=== PATIENT | male | born 1975 ===

== ENCOUNTER 2020-04-28 15:51 | Outpatient (CLI) | payer SELFPAY | END 2020-04-28 15:52 | disposition critical access hospital (66) | LOC: EMS 15:51 | PROVIDERS: ATTEND Surgery | DX: R41.0 Disorientation, unspecified (principal) | CPT/HCPCS: A0425; A0429 ==

== ENCOUNTER 2020-04-28 16:20 | Emergency (ER) | payer SELFPAY ==
--- NOTE | 2020-04-28 16:34 | ED Physician Documentation ---
History of Present Illness - Stated complaint Stated Complaint: POSS C+/BIPOLAR - History obtained from History obtained from: Patient, EMS - History of Present Illness Timing: Today Pain level max: 0 Pain level now: 0 - Additonal information Additional information: Patient is a 45-year-old male who states that he is looking for his lost love today. He states that he is concerned about the coronavirus and wants antibody injections for the coronavirus. He is asymptomatic. No cough. No fever. No chills. He states that he is on medication for bipolar. Unclear if he is taking them or not. Patient is reportedly staying at the [facility] and where he has been "partying" with his friends all weekend. States drinking and using drugs. Review of Systems Ten Systems: 10 systems reviewed and negative Constitutional: denies: Fever, Chills Ears: denies: Ear pain Nose: denies: Rhinorrhea / runny nose, Congestion Throat: denies: Sore throat Cardiac: denies: Chest pain / pressure Respiratory: denies: Dyspnea, Cough GI: denies: Abdominal Pain, Nausea, Vomiting, Diarrhea : denies: Dysuria Skin: denies: Rash Musculoskeletal: denies: Neck pain, Back pain Neurologic: denies: Focal weakness, Numbness, Headache PD PAST MEDICAL HISTORY - Past Medical History Past Medical History: Yes Psych: Bipolar disorder - Past Surgical History Past Surgical History: No - Allergies Allergies/Adverse Reactions: Allergies Allergy/AdvReac Type Severity Reaction Status Date / Time lithium Allergy Rash Verified 04/28/20 16:27 Penicillins Allergy Rash Verified 04/28/20 16:27 - Living Situation Living Arrangement: reports: At home - Social History Does the pt smoke?: Yes Does the pt drink ETOH?: Yes Does the pt have substance abuse?: Yes - Family History Family history: reports: Non contributory PD ED PE NORMAL - Vitals Vital signs reviewed: Yes - General General: Alert and oriented X 3, No acute distress, Well developed/nourished - HEENT HEENT: Moist mucous membranes, Pharynx benign - Neck Neck: Supple, no meningeal sign - Cardiac Cardiac: RRR, Strong equal pulses - Respiratory Respiratory: No respiratory distress, Clear bilaterally - Abdomen Abdomen: Soft, Non tender, Non distended - Derm Derm: Warm and dry - Extremities Extremities: No edema - Neuro Neuro: Alert and oriented X 3 Results - Vitals Vitals: Vital Signs - 24 hr 04/28/20 04/28/20 16:28 16:44 Temperature 37 C 37 C Heart Rate 81 81 Respiratory 16 16 Rate Blood Pressure 162/83 H 162/83 H O2 Saturation 96 96 Oxygen O2 Source Room air PD MEDICAL DECISION MAKING - ED course Complexity details: considered differential, d/w patient ED course: Patient became agitated when he was told there are no antibody injections available for the coronavirus. Patient states then he does not know why he is in the emergency department and that he wants to leave and go home. He walked out into the hallway and stopped in front of 1 of the nurses, Eric, the patient took off his own mask and then tried to remove Eric's mask as well. Police were called. Patient again reiterated that he did not want to be in the emergency department he wanted a ride back to the hotel. The police were comfortable taking him back to the hotel. Patient is alert, oriented. He states he is not homicidal or suicidal. He is not placed on an GERONIMO by police. This document was made in part using voice recognition software. While efforts are made to proofread this document, sound alike and grammatical errors may occur. Departure - Departure Disposition: ED Left Without Being Seen Clinical Impression: Drug abuse, Bipolar 1 disorder Condition: Good Discharge Date/Time: 04/28/20 16:50
[2020-04-28 16:44] VITALS: BP 162/83
== END 2020-04-28 16:50 | disposition left against medical advice (07) ==
LOC: ED 16:20
DX: F19.10 Other psychoactive substance abuse, uncomplicated (principal); F31.9 Bipolar disorder, unspecified
CPT/HCPCS: 99281

== ENCOUNTER 2020-04-29 04:17 | Outpatient (CLI) | payer SELFPAY | END 2020-04-29 04:18 | disposition critical access hospital (66) | LOC: EMS 04:17 | PROVIDERS: ATTEND Surgery | DX: R41.82 Altered mental status, unspecified (principal) | CPT/HCPCS: A0425; A0429 ==

== ENCOUNTER 2020-04-29 04:57 | Emergency (ER) | payer SELFPAY ==
--- NOTE | 2020-04-29 04:58 | ED Physician Documentation ---
History of Present Illness - Stated complaint Stated Complaint: MHE - History obtained from History obtained from: EMS, Police - Additonal information Additional information: The patient is a 45-year-old male brought in by law enforcement and EMS involuntarily. The patient is uncooperative he is in four-point restraints he is refusing to answer any questions he is attempting to spit on healthcare providers. EMS reports the patient was found lying down on the side of the road and being uncooperative they did do an Accu-Chek that was 132 according to first responders. I reviewed the patient's notes he was seen here earlier today and appears to have an a diagnosis of bipolar disorder as well as substance abuse and he is really not taking any of his medications.The patient is refusing to answer any questions. Review of Systems Unable to obtain: Uncooperative PD PAST MEDICAL HISTORY - Present Medications Home Medications: Ambulatory Orders Medication Instructions Recorded Confirmed Home Medications Unobtainable 04/29/20 04/29/20 [HOME MEDICATIONS UNOBTAINABLE] - Allergies Allergies/Adverse Reactions: Allergies Allergy/AdvReac Type Severity Reaction Status Date / Time lithium Allergy Rash Verified 04/28/20 16:27 Penicillins Allergy Rash Verified 04/28/20 16:27 PD ED PE NORMAL - Vitals Vital signs reviewed: Yes - General General: Alert and oriented X 3, No acute distress - HEENT HEENT: PERRL - Neck Neck: Supple, no meningeal sign - Cardiac Cardiac: RRR, No murmur - Respiratory Respiratory: Clear bilaterally - Abdomen Abdomen: Normal bowel sounds, Soft, Non tender, Non distended - Derm Derm: Warm and dry - Extremities Extremities: No deformity - Neuro Neuro: Alert and oriented X 3 - Psych Psych: Other (Uncooperative, refusing to answer any questions.) Results - Vitals Vitals: Vital Signs - 24 hr 04/29/20 04/30/20 16:03 00:00 Temperature 36.6 C Heart Rate 55 L 61 Respiratory 16 16 Rate Blood Pressure 120/79 111/77 O2 Saturation 98 97 Oxygen O2 Source Room air - Labs Labs: Laboratory Tests 04/29/20 04/29/20 04/29/20 05:30 05:30 05:30 WBC 9.9 RBC 5.02 Hgb 14.7 Hct 43.0 MCV 85.7 MCH 29.3 MCHC 34.2 RDW 14.0 Plt Count 274 MPV 10.3 Neut # (Auto) 6.0 Lymph # (Auto) 2.7 [place] # (Auto) 0.9 Eos # (Auto) 0.3 Baso # (Auto) 0.1 Absolute Nucleated RBC 0.00 Nucleated RBC % 0.0 Sodium 142 Potassium 3.8 Chloride 105 Carbon Dioxide 25 Anion Gap 12.0 BUN 16 Creatinine 0.8 Estimated GFR (MDRD) 105 Glucose 157 H Calcium 9.7 Total Bilirubin 1.1 H AST 22 ALT 52 Alkaline Phosphatase 48 Total Protein 7.7 Albumin 4.8 Globulin 2.9 Albumin/Globulin Ratio 1.7 Lipase 23 TSH 2.93 Urine Color Urine Clarity Urine pH Ur Specific [place] Urine Protein Urine Glucose (UA) Urine Ketones Urine Occult Blood Urine Nitrite Urine Bilirubin Urine Urobilinogen Ur Leukocyte Esterase Ur Microscopic Review Urine Culture Comments Salicylates < 6.0 Urine Opiates Screen Ur Oxycodone Screen Urine Methadone Screen Ur Propoxyphene Screen Acetaminophen < 10 L Ur Barbiturates Screen Ur Tricyclics Screen Ur Phencyclidine Scrn Ur Amphetamine Screen U Methamphetamines Scrn U Benzodiazepines Scrn Urine Cocaine Screen U Cannabinoids Screen Ethyl Alcohol < 5.0 04/29/20 10:30 WBC RBC Hgb Hct MCV MCH MCHC RDW Plt Count MPV Neut # (Auto) Lymph # (Auto) [place] # (Auto) Eos # (Auto) Baso # (Auto) Absolute Nucleated RBC Nucleated RBC % Sodium Potassium Chloride Carbon Dioxide Anion Gap BUN Creatinine Estimated GFR (MDRD) Glucose Calcium Total Bilirubin AST ALT Alkaline Phosphatase Total Protein Albumin Globulin Albumin/Globulin Ratio Lipase TSH Urine Color DARK YELLOW Urine Clarity CLEAR Urine pH 6.0 Ur Specific [place] 1.025 Urine Protein NEGATIVE Urine Glucose (UA) NEGATIVE Urine Ketones NEGATIVE Urine Occult Blood NEGATIVE Urine Nitrite NEGATIVE Urine Bilirubin NEGATIVE Urine Urobilinogen 0.2 (NORMAL) Ur Leukocyte Esterase NEGATIVE Ur Microscopic Review NOT INDICATED Urine Culture Comments NOT INDICATED Salicylates Urine Opiates Screen NEGATIVE Ur Oxycodone Screen NEGATIVE Urine Methadone Screen NEGATIVE Ur Propoxyphene Screen NEGATIVE Acetaminophen Ur Barbiturates Screen NEGATIVE Ur Tricyclics Screen NEGATIVE Ur Phencyclidine Scrn NEGATIVE Ur Amphetamine Screen NEGATIVE U Methamphetamines Scrn NEGATIVE U Benzodiazepines Scrn NEGATIVE Urine Cocaine Screen NEGATIVE U Cannabinoids Screen NEGATIVE Ethyl Alcohol PD MEDICAL DECISION MAKING - ED course Complexity details: reviewed old records, reviewed results, re-evaluated patient, considered differential, d/w patient, other (patient signed out at shift change to dr. david dubois.) ED course: 45-year-old male with suspected mental health disorder and possible substance abuse brought and uncooperative found lying down on the road. Plan is for medical clearance and evaluation by the DM. 20:54. patient evaluated by tele psych. patient to be admitted involuntary to inpatient psych. Patient became violent and agitated and threatening nursing staff as well as thrashing patient was restrained and chemically sedated. Patient will be evaluated by the DM. patient signed out at shift change to the dr david dubois. Departure - Departure Disposition: 65 Psych Hosp/Unit DC/Xfer Clinical Impression: Bipolar 1 disorder, Drug abuse Condition: Stable
[2020-04-29] MEDS ORDERED: OLANZapine 10 MG VIAL IM STA ×2 (05:10→10:28)
[2020-04-29 05:35] LABS: BASOPHILS # (AUTO) 0.1 10^3/uL (0.0-0.1); BASOPHILS % (AUTO) 0.5 %; EOSINOPHILS # (AUTO) 0.3 10^3/uL (0.0-0.7); EOSINOPHILS % (AUTO) 2.6 %; HGB - HEMOGLOBIN 14.7 g/dL (14.0-18.0); LYMPHOCYTES # (AUTO) 2.7 10^3/uL (1.5-3.5); LYMPHOCYTES % (AUTO) 27.4 %; MEAN CORPUSCULAR HEMOGLOBIN 29.3 pg (27.0-31.0); MEAN CORPUSCULAR HGB CONC 34.2 g/dL (32.0-36.0); MEAN CORPUSCULAR VOLUME 85.7 fL (80.0-94.0); MEAN PLATELET VOLUME 10.3 fL (7.4-11.4); MONOCYTES # (AUTO) 0.9 10^3/uL (0.0-1.0); NEUTROPHILS % (AUTO) 60.3 %; PLT - PLATELET COUNT 274 10^3/uL (130-450); RED BLOOD COUNT 5.02 10^6/uL (4.70-6.10); WHITE BLOOD COUNT 9.9 x10^3/uL (4.8-10.8)
[2020-04-29 05:57] LABS: ACETAMINOPHEN < 10 ug/mL (10-30); ALBUMIN 4.8 g/dL (3.2-5.5); ALBUMIN/GLOBULIN RATIO 1.7 (1.0-2.2); ALKALINE PHOSPHATASE 48 IU/L (42-121); ALT ALANINE AMINOTRANSFERASE 52 IU/L (10-60); AST ASPARTATE AMINOTRANSFERASE 22 IU/L (10-42); BILIRUBIN,TOTAL 1.1 mg/dL (0.2-1.0); BUN - BLOOD UREA NITROGEN 16 mg/dL (6-20); CALCIUM 9.7 mg/dL (8.5-10.3); CARBON DIOXIDE - CO2 25 mmol/L (21-32); CHLORIDE 105 mmol/L (101-111); CREATININE 0.8 mg/dL (0.6-1.2); GLUCOSE 157 mg/dL (70-100); LIPASE 23 U/L (22-51); SALICYLATE < 6.0 mg/dL; SODIUM 142 mmol/L (135-145); TOTAL PROTEIN 7.7 g/dL (6.7-8.2)
[2020-04-29 10:57] LABS: MUDS CUTOFF CONCENTRATIONS CUTOFF CONC BELOW:
[2020-04-29 11:03] LABS: BILIRUBIN,URINE NEGATIVE (NEGATIVE); GLUCOSE, URINE (UA) NEGATIVE (NEGATIVE); KETONES,URINE (UA) NEGATIVE (NEGATIVE); LEUKOCYTE ESTERASE, URINE NEGATIVE (NEGATIVE); NITRITE,URINE NEGATIVE (NEGATIVE); OCCULT BLOOD,URINE NEGATIVE (NEGATIVE); PROTEIN,URINE NEGATIVE (NEGATIVE); UROBILINOGEN,URINE 0.2 (NORMAL) E.U./dL (NORMAL)
[2020-04-29 11:05] LABS: CLARITY,URINE CLEAR (CLEAR)
[2020-04-29 11:12] LABS: AMPHETAMINE SCREEN,URINE NEGATIVE (NEGATIVE); BENZODIAZEPINES SCREEN, URINE NEGATIVE (NEGATIVE); COCAINE SCREEN URINE NEGATIVE (NEGATIVE); METHADONE SCREEN, URINE NEGATIVE (NEGATIVE); METHAMPHETAMINES SCREEN, URINE NEGATIVE (NEGATIVE); OPIATE SCREEN, URINE NEGATIVE (NEGATIVE); OXYCODONE SCREEN, URINE NEGATIVE (NEGATIVE); PROPOXYPHENE SCREEN, URINE NEGATIVE (NEGATIVE); TRICYCLIC ANTIDEPRESSANT,URINE NEGATIVE (NEGATIVE)
--- NOTE | 2020-04-29 20:24 | TELEPSYCH PHYS NOTE ---
Telepsych Note - CHIEF COMPLAINT/HX OF PRESENT ILLNESS Cheif Complaint and History of Present Illness: Pt was brought in by [facility] after being found lying by the side of the road. He was brought in agitated, combative, spitting on staff and required prns and restraints. HPI: PT is a 45y/o wm with h/o bipolar who was brought in by [facility] after being found lying on the side of the road. HE remains in retraints and is not able to provide much history. He says he was brought in for "seeking the truth" and that "people are dying" and he has to save them. HE admits to poor sleep, high energy and hearing voices. He denied CAH but has attempted suicide before. He denied thoughts of harm to others but says he has hurt people. He denied h/o trauma. He denied use of drugs or alcohol. He says he has been taking his meds but does not have a doctor. - SI/HI/SELF HARM SI/HI/Self Harm Text (Current or History of):: PT denied suicidal thoughts but admits to prior suicide attempts. He says he was by the road "seeking the truth...people dying" - VIOLENCE/LEGAL/COLLATERAL Violence - Legal - Collateral: Pt came in combative and spitting on people. He says he has been violent but did not elaborate - PSYCHIATRIC HX/TREATMENT HX Psychiatric: Bipolar disorder Psychiatric/Treatment Hx Other: Pt says he has been hospitalized too many times to count. He does not currently have an outpatient provider - DRUG/ALCOHOL HX Substance use/abuse/alcohol text: Pt denied use of illicit drugs or alcohol but is reported to have a h/o drug use. UDS/BAl were negative - MEDICAL HX PMH Other: PT says he has diabetes and hypertension - HOME MEDICATIONS Home Meds (as last confirmed): Patient History Medication Instructions Recorded Confirmed Home Medications Unobtainable 04/29/20 04/29/20 [HOME MEDICATIONS UNOBTAINABLE] - ALLERGIES Allergies (as last confirmed): Allergies Allergy/AdvReac Type Severity Reaction Status Date / Time lithium Allergy Rash Verified 04/28/20 16:27 Penicillins Allergy Rash Verified 04/28/20 16:27 - FAMILY PSYCH/SUICIDE/SOCIAL HX-MENTAL Family - Suicide - Social Hx and Mental Status Exam: FH: PT said his dad has bipolar and his grandmother may have committed suicide SH: PT said he has been and is in a relationship but did not elaborate. He is homeless and said his only support is "Abdirashid Trjennifer" He has a bachelors and is on disability for bipolar. He denied access to guns. He admits to legal issues but did not specify. He is not sure if any are pending. MSE: PT was a large wm in with restraints on. He said his mood was "seeking the truth" and he displayed an agitated affect. His thought process was slow and he appeared confused. He was quite irritable. He denied suicidal thoughts but said he has attempted suicide before. He admits to h/o violence. He admits to poor sleep, increased energy and the need to save people dying. He has been hearing voices but did not elaborate. insight and judgment were poor - TREATMENT/PHARMACOLOGICAL RECOMMENDATION Treatment - Pharmacological - Therapy Recommendations: Pt is a 45y/o wm with h/o bipolar who was brought in agitated and combative by [facility]. He remained in restraints throughout the assessment. He was irritable, appeared confused and psychotic. He admits to hearing voices and the need to seek the truth. He says he is homeless and his only support is Trump. He has been hospitalized many times before but does not have an outpatient provider. He says he takes his medication but it is not clear where he gets his prescriptions. He denied substance use, BAL and UDS were negative. He has a family hx of affective d/o and his grandmother may have killed herself. Given lack of supports, current symptoms of gabriela and psychosis, agitation and aggression, recommend admit for safety and stabilization. 1. Admit to inpatient psychiatry for mood stabilization and safety. AGree with plan to screen for Involuntary 2. STart Zyprexa 5mg po bid 3. Zyprexa 5mg po/im q 4h prn agitation/psychosis NTE 40mg qd. 4. Resume Depakote 250mg po TID - TIME SPENT & PROVIDER LOCATION Telepsych consultation conducted via videoconferencing: Yes List names and roles of persons who participated in consult: Danisha and Dr Farah Telepsych Provider Location: [place] Time Telepsych consult began: 22:35 Time Telepsych consult completed: 23:35
[2020-04-29] MEDS ORDERED: diphenhydrAMINE INJ 50 MG/ML VIAL IM STA (22:24)
[2020-04-29] MEDS ORDERED: HALOPERIDOL 5 MG/ML VIAL IM STA (22:24)
[2020-04-29] MEDS ORDERED: LORazepam 2 MG/ML VIAL IM STA (22:25)
--- NOTE | 2020-04-30 08:53 | ED Physician Documentation ---
ED Addendum - Addendum Addendum: 04/30/20 08:50 45-year-old bipolar male in a manic state has been violent and is currently restrained awaiting a negative COVID test and requiring PRN antipsychotic. Our plan for today was to attempt chemical restraint followed by removing the physical restraints in order to have a 4-hour restraint free period of time for us to be able to transfer him to another facility. This morning the patient is still too violent to unrestrained and I have made a telephone consult to Dr. Ezra Cary psychiatrist on tele-psych and he has made additional recommendations to those made by Debo Pickett. He recommends we increase the dose to 15 mg of Zyprexa twice daily and use 5 as needed without exceeding 40mg/day total. He recommended use of alternative agent such as Haldol for breakthrough beyond these doses. He also recommends restarting the Depakote. 04/30/20 15:48 Electrocardiogram obtained at 1532 shows a rate of 66 with a sinus rhythm there is left atrial enlargement and left posterior fascicular block present and there is borderline low voltage there is no evidence of ischemia and there is no prior tracing for comparison.The QTc today is 434
[2020-04-30] MEDS ORDERED: OLANZapine ODT 5 MG TABLET TL SCH (09:00)
[2020-04-30] MEDS ORDERED: IBUPROFEN 600 MG TABLET PO STA (09:06)
[2020-04-30 13:12] VITALS: BP 147/84
[2020-04-30] MEDS ORDERED: DIVALPROEX ER 250 MG TABLET PO SCH ×2 (14:00→16:00)
[2020-04-30] MEDS ORDERED: OLANZapine 10 MG VIAL IM STA (19:08)
== END 2020-04-30 19:38 ==
LOC: EDUNIT# → ED 04:57
DX: F31.2 Bipolar disorder, current episode manic severe with psychotic features (principal); F19.10 Other psychoactive substance abuse, uncomplicated; Z78.1 Physical restraint status; Z59.0 Homelessness; Z81.8 Family history of other mental and behavioral disorders; Z20.828 Contact with and (suspected) exposure to other viral communicable diseases
CPT/HCPCS: 36415; 80320; 80329; 81003; 83690; 87635; 93005; 96372; 99281; 99285; A9270; J1200; J2060; 80053; 80306; 80307; 81001; 84443; 85025; 87086